=== PATIENT | male | born 1985 | race African-American/Black ===

== ENCOUNTER 2022-04-10 15:29 | Emergency (ER) | payer SELFPAY ==
[2022-04-10] MEDS ORDERED: HYDROcodone/Acetaminophen 5/325 mg Tablet ONE (17:35)
[2022-04-10] MEDS ORDERED: Diazepam 5 MG TAB ONE (17:35)
== END 2022-04-10 17:52 | disposition home or self-care (01) ==
LOC: CSHERS 15:29
DX: S39.011A Strain of muscle, fascia and tendon of abdomen, initial encounter (principal); M25.551 Pain in right hip; W23.0XXA Caught, crushed, jammed, or pinched between moving objects, initial encounter
CPT/HCPCS: 72170